=== PATIENT | female | born 1960 | race Caucasian/White ===

== ENCOUNTER → 2016-11-20 08:58 | Day surgery (SDC) | payer BC ==
[~2016-11-20 08:58] MED LIST: Lidocain 1% EPI 1:100,000 * 30 ML MDV ONE; Lidocaine 1% INJ* 10 MG/ML 30 ML SDV ONE; Lidocaine 2.5%/Prilocain 2.5%* 5 GM TUBE ONE; Sodium Bicarbonate 8.4% SYR* 10 ML SYRINGE ONE
[2016-11-20 11:34] VITALS: BP 108/61
--- NOTE | 2016-11-21 01:59 | OP ---
DATE OF OPERATION: 11/20/16 - [facility] DATE OF : 60 SURGEON: Ryder Bains MD MAILMASTER: MAGDI Fontaine ANESTHESIOLOGIST: None. ANESTHESIA: Local only with 1% lidocaine with epinephrine and bicarbonate. PRE-OP DIAGNOSIS: Left trigger thumb. POST-OP DIAGNOSIS: Left trigger thumb. OPERATIVE PROCEDURE: Release of A1 shelby, left trigger thumb. INDICATIONS: Brittaney is 55. She had the left trigger thumb injected back in the fall of 2015. Initially, did very well, but the trigger thumb recurred and was as bad as it was before the injection. I saw her in the office for doing another injection versus surgery. She wanted to proceed with surgery. We talked about risks and benefits. ESTIMATED BLOOD LOSS: 5 mL. COMPLICATIONS: None. FINDINGS: As expected. DESCRIPTION OF PROCEDURE: Brittaney was seen in the preoperative holding area and the correct site and side of procedure were identified. We then had a time-out and I anesthetized the area with the anesthetic agent. We waited about 20 or 30 minutes and then we came back to the operating room where the arm was prepped and draped in the usual fashion. A formal time-out was performed. I made a transverse 1 to 1.5 cm incision in the volar flexion crease of the MP joint of the left thumb. Dissection was carried down bluntly to the tendon sheath and full thickness flaps were raised right after the tendon sheath. The radial and ulnar digital nerves were identified and protected throughout the entirety of the procedure. With direct visualization of the tendon sheath, the #15 blade was used to longitudinally open the proximal aspect of the A1 shelby. The release was completed distally with a tenotomy scissors. I did go ahead and released a little bit more proximally as well. Once I felt like I had a nice release, I went ahead and irrigated the wound. I then let down the drape, so she can see the thumb and I had her flex and extend the thumb multiple times just to make sure she absolutely could not induce any triggering. Everything looked good, so we went ahead and washed out the wound and closed the skin with some 5-0 nylon sutures. Wound was dressed with Xeroform, 4x4s, sterile Webril, and some Kwan wrap. She was then taken to recovery room in stable condition. [id number]/[facility] #: [id number] [facility]OSPITALDelmi
== END | disposition home or self-care (01) ==
LOC: OREAST 08:58
PROVIDERS: ATTEND Orthopaedic Surgery Hand Surgery
DX: M65.312 Trigger thumb, left thumb (principal)
CPT/HCPCS: A9270-GY; J2001

== ENCOUNTER 2017-08-09 08:14 | Emergency (ER) | payer BC ==
[2017-08-09 08:25] VITALS: BP 98/83
--- NOTE | 2017-08-09 08:50 | UC ---
Throat Pain/Nasal Daryl HPI - HPI Summary HPI Summary: Patient presents with complaints of 5 day onset sinus pain, pressure, green- bloodly nasal discharge. She complains of associated headache as well, that is behind the eyes, and came on gradually, and is consistent with headaches she has had in the past, with no focal neurological features. Shed denies any slurred speech, double vision, numbness, tingling or weakness of the extremities. - History of Current Complaint Chief Complaint: UCRespiratory Stated Complaint: SINUS ISSUE Time Seen by Provider: 08/09/17 08:30 Hx Obtained From: Patient ?: No Onset/Duration: Gradual Onset, Lasting Days Severity: Mild Cough: Nonproductive Associated Signs & Symptoms: Positive: Sinus Discomfort, Nasal Discharge - Epiglottits Risk Factors Epiglottis Risk Factors: Negative - Allergies/Home Medications Allergies/Adverse Reactions: Allergies Allergy/AdvReac Type Severity Reaction Status Date / Time No Known Allergies Allergy Verified 08/09/17 08:21 PMH/Surg Hx/FS Hx/Imm Hx Previously Healthy: Yes - Surgical History Surgical History: Yes Surgery Procedure, Year, and Place: tonsils and adenoids - Family History Known Family History: Positive: Other - dementia - Social History Occupation: Employed Full-time Lives: Alone Alcohol Use: None Substance Use Type: None Smoking Status (MU): Never Smoked Tobacco Review of Systems Constitutional: Negative Skin: Negative Eyes: Negative ENT: Nasal Discharge, Sinus Congestion, Sinus Pain/Tenderness Respiratory: Negative Cardiovascular: Negative Gastrointestinal: Negative Genitourinary: Negative Motor: Negative Neurovascular: Negative Musculoskeletal: Negative Neurological: Negative Psychological: Negative Is Patient Immunocompromised?: No All Other Systems Reviewed And Are Negative: Yes Physical Exam Triage Information Reviewed: Yes Appearance: Well-Appearing Vital Signs: Initial Vital Signs Temp 98.5 F 08/09/17 08:21 Pulse 89 08/09/17 08:21 Resp 16 08/09/17 08:21 BP 98/83 08/09/17 08:21 Pulse Ox 100 08/09/17 08:21 Vital Signs Reviewed: Yes Eye Exam: Normal ENT Exam: Normal ENT: Positive: Sinus tenderness - terbinates are edematous, erythematous, with injection. no anterior rhinorrhea noted. Dental Exam: Normal Neck exam: Normal Neck: Positive: 1 Respiratory Exam: Normal Cardiovascular Exam: Normal Abdominal Exam: Normal Skin Exam: Normal Throat Pain/Nasal Course/Dx - Course Course Of Treatment: Patient presents with an unremarkable past medical history. VS are normal and she is afebrile. Clinical findings are consistent with sinusitis, and she was treated with Zpk, and five day course of prednisone 10 mg daily. She was otherwise stable and appropriate for outpatient discharge and follow up. - Differential Dx/Diagnosis Differential Diagnosis/HQI/PQRI: Sinusitis Provider Diagnoses: sinusitis Discharge - Discharge Plan Condition: Stable Disposition: HOME Prescriptions: Azithromycin TAB* [Zithromax TAB (Z-NILE) 250 mg #6 tabs] 250 mg PO DAILY #6 tab predniSONE TAB* [Deltasone TAB*] 10 mg PO DAILY #5 tab Patient Education Materials: Sinusitis (ED) Referrals: Wallace Dodge MD [Primary Care Provider] -
== END 2017-08-09 08:40 | disposition home or self-care (01) ==
LOC: UCEAST 08:14
DX: J32.9 Chronic sinusitis, unspecified (principal)
CPT/HCPCS: 99212; G0463